=== PATIENT | female | born 1985 | race Caucasian/White ===

== ENCOUNTER 2020-07-26 10:11 | Outpatient (CLI) | payer MEDICAID, SELFPAY ==
--- NOTE | 2020-07-26 10:31 | XR_ITS ---
WS: [id number] LEFT ANKLE: 3 VIEW(S) TECHNIQUE: AP, oblique(s) and lateral. HISTORY: LEFT ANKLE PAIN COMPARISON: None available. Normal anatomic alignment with no fracture or dislocation. There is very mild widening of the distal tibiofibular articulation which may indicate an intraosseou s membrane injury. There is additional soft tissue swelling laterally. Well-corticated osseous density at the medial malleolus is probably from prior trauma. Ankle mortise is otherwise intact. Small calcaneal spur and Achilles enthesopathy. XR/XR ankle LT min 3V* [id number] IMPRESSION: 1. No acute fracture. 2. Very mild widening of the distal tibiofibular articulation. 3. Small amount of soft tissue edema laterally.
== END 2020-07-26 10:12 | disposition home or self-care (01) ==
LOC: RADWPI 10:20
PROVIDERS: PCP Nurse Practitioner Family; Visit Provider Nurse Practitioner Family
DX: M25.572 Pain in left ankle and joints of left foot (principal); R60.0 Localized edema
CPT/HCPCS: 73610

== ENCOUNTER → 2020-12-25 12:54 | Outpatient (BNVA) | payer BC, SELFPAY | PROVIDERS: PCP Nurse Practitioner Family; Visit Provider Podiatrist Foot & Ankle Surgery | DX: M25.571 Pain in right ankle and joints of right foot (principal) | CPT/HCPCS: 73610 ==

== ENCOUNTER 2020-12-25 14:05 | Outpatient (CLI) | payer BC, SELFPAY | END 2020-12-25 14:06 | disposition home or self-care (01) | LOC: SPT 14:07 | PROVIDERS: PCP Nurse Practitioner Family; Visit Provider Podiatrist Foot & Ankle Surgery | DX: Z46.89 Encounter for fitting and adjustment of other specified devices (principal); S99.919D Unspecified injury of unspecified ankle, subsequent encounter; X58.XXXD Exposure to other specified factors, subsequent encounter; M76.821 Posterior tibial tendinitis, right leg; M19.171 Post-traumatic osteoarthritis, right ankle and foot | CPT/HCPCS: 97760; L1902 ==

== ENCOUNTER 2021-02-05 11:06 | Outpatient (CLI) | payer BC, MEDICAID, SELFPAY ==
[2021-02-05 12:31] LABS: Estmated Average Glucose 143; Hemoglobin A1C 6.6 % (4.0-6.0)
== END 2021-02-05 11:07 | disposition home or self-care (01) ==
LOC: LAB 11:13
PROVIDERS: PCP Nurse Practitioner Family; Visit Provider Podiatrist Foot & Ankle Surgery
DX: R73.03 Prediabetes (principal)
CPT/HCPCS: 36415; 83036

== ENCOUNTER → 2022-04-15 12:33 | Outpatient (BNVA) | payer BC, MEDICAID, SELFPAY | PROVIDERS: PCP Nurse Practitioner Family; Referring Provider Pediatrics; Visit Provider Surgery | DX: Z68.43 Body mass index [BMI] 50.0-59.9, adult (principal); E66.01 Morbid (severe) obesity due to excess calories; E11.9 Type 2 diabetes mellitus without complications | CPT/HCPCS: 99203 ==

== ENCOUNTER → 2022-05-27 07:55 | Outpatient (BNVA) | payer BC, MEDICAID, SELFPAY | PROVIDERS: PCP Family Medicine; Referring Provider Family Medicine; Visit Provider Internal Medicine | DX: E11.9 Type 2 diabetes mellitus without complications (principal); L68.0 Hirsutism; E28.2 Polycystic ovarian syndrome; N92.6 Irregular menstruation, unspecified; R63.5 Abnormal weight gain; Z68.42 Body mass index [BMI] 45.0-49.9, adult; F17.220 Nicotine dependence, chewing tobacco, uncomplicated | CPT/HCPCS: 99204 ==

== ENCOUNTER 2022-05-29 13:57 | Outpatient (CLI) | payer BC, MEDICAID, SELFPAY ==
[2022-05-29 14:58] LABS: Follicle Stimulating Hormone 7.5 mIU/mL; Luteinizing Hormone 10.3 mIU/mL (0.5-41.7); Prolactin 12.68 ng/mL (4.8-23.3); Thyroid Stimulating Hormone 1.21 uIU/mL (0.27-4.20)
[2022-05-29 16:35] LABS: Free T4 Free Thyroxine 1.25 ng/dL (0.82-1.77); Testosterone Total 29.9 ng/dL (8.4-48.1)
[2022-05-30 07:52] LABS: Dehydroepiandrosterone Sulfate 154 mcg/dL (19-237)
[2022-06-01 12:12] LABS: Thyroid Peroxidase Antobodies 1 IU/mL (<9)
== END 2022-05-29 13:58 | disposition home or self-care (01) ==
LOC: LAB 14:01
PROVIDERS: PCP Family Medicine; Visit Provider Internal Medicine
DX: E11.9 Type 2 diabetes mellitus without complications (principal); E28.2 Polycystic ovarian syndrome; L68.0 Hirsutism; N92.6 Irregular menstruation, unspecified; R63.5 Abnormal weight gain
CPT/HCPCS: 82627; 83001; 83002; 83498; 84146; 84403; 84439; 84443; 86376

== ENCOUNTER 2022-08-12 08:57 | Outpatient (CLI) | payer BC, MEDICAID, SELFPAY ==
--- NOTE | 2022-08-12 09:07 | US_ITS ---
WS: [id number] TRANSVAGINAL PELVIC ULTRASOUND HISTORY: Ovarian cysts COMPARISON: None available. Uterus: 7.8 cm x 4.1 cm x 3.7 cm. Normal size anteverted uterus. No fibroid or mass. Numerous cystic structures throughout the cervix consistent with nabothian cysts. Endometrium: 1.1 cm. Normal endometrium. Junctional zone intact. Neither ovary is identified. No adnexal mass is identified. There is a large amount shadowing from th e GI tract obscuring the adnexa. There is no free fluid. US/US transvaginal [id number] IMPRESSION: 1. Normal endometrium. 2. Neither ovary identified. No adnexal masses. 3. Numerous nabothian cysts.
== END 2022-08-12 08:58 | disposition home or self-care (01) ==
PROVIDERS: PCP Family Medicine; Visit Provider Internal Medicine
DX: E28.2 Polycystic ovarian syndrome (principal)
CPT/HCPCS: 76830

== ENCOUNTER → 2023-06-08 08:42 | Outpatient (BNVA) | payer BC, MEDICAID, SELFPAY | PROVIDERS: PCP Family Medicine; Visit Provider Obstetrics & Gynecology | DX: N92.0 Excessive and frequent menstruation with regular cycle (principal) | CPT/HCPCS: 76830 ==

== ENCOUNTER → 2023-07-21 09:04 | Outpatient (BNVA) | payer BC, MEDICAID, SELFPAY | PROVIDERS: PCP Family Medicine; Visit Provider Obstetrics & Gynecology | DX: R35.0 Frequency of micturition (principal) | CPT/HCPCS: 84315; 87077; 87086; 87184 ==

== ENCOUNTER → 2023-07-23 10:00 | Outpatient (BNVA) | payer BC, MEDICAID, SELFPAY | PROVIDERS: PCP Family Medicine; Visit Provider Obstetrics & Gynecology | DX: Z12.4 Encounter for screening for malignant neoplasm of cervix (principal) | CPT/HCPCS: 87624 ==

== ENCOUNTER 2023-07-29 08:06 | Day surgery (SDC) | payer BC, MEDICAID, SELFPAY ==
[2023-07-28 09:09] VITALS: BMI 46.0
--- NOTE | 2023-07-28 22:18 | W.PM.OPSFHP ---
Same Day Surgery H&P Indication for Procedure/HPI DATE OF PROCEDURE: July 29, 2023 CHIEF COMPLAINT/INDICATIONFOR SURGICAL PROCEDURE: irregular, heavy, prolonged bleeding PREOP DIAGNOSIS: abnormal uterine bleeding PLANNED PROCEDURE: Operation Date: 07/29/23 10:15 Proposed Procedures p Hysteroscopy, endometrial sampling, possible endometrial polypectomy with Myosure 58276, Intrauterine device placement 83323,N92.0,Z30.9(Not Applicable) - Ralf Marshall MD s Poylpectomy(Not Applicable) - Ralf Marshall MD s Placement of Intrauterine Device(Not Applicable) - Ralf Marshall MD 38 y.o. A4 now scheduled for hysteroscopy, endometrial sampling, possible endometrial polypectomy; mirena IUD placement for h/o irregular, heavy, prolonged bleeding Medications/Allergies* Home Medications Medication Instructions Recorded Confirmed Type acetaminophen 325 mg tablet 325 mg PO QID PRN Pain 04/15/22 07/28/23 History (Tylenol) cetirizine 10 mg tablet (Zyrtec) 10 mg PO DAILY PRN allergies 04/15/22 07/28/23 History sitagliptin phosphate 25 mg tablet 25 mg PO ONCE 04/15/22 07/28/23 History (Januvia) Allergies/Adverse Reactions Allergy/AdvReac Type Severity Reaction Status Date / Time erythromycin base Allergy Severe swelling Verified 07/28/23 09:07 torodol Allergy Intermediate nausea Uncoded 07/28/23 09:07 Pertinent History/Comorbid Conditions* Medical History (Updated 07/25/23 @ 19:52 by Ralf Marshall MD) Cyst near coccyx Hx of pilonidal cyst removed 2014 Surgical History (Updated 12/25/20 @ 13:48 by Bang Pompa DPM) History of cholecystectomy History of dilatation and curettage History of tonsillectomy and adenoidectomy Family History (Updated 02/22/23 @ 12:05 by Rosangela Lamb LPN) Family history of heart attack Mother Father Denies family history of Colon cancer Ovarian cancer Diabetes Hypercholesteremia Breast cancer Hypertension Uterine cancer Thyroid disease Stroke Pertinent Exam Findings alert, oriented x 3, clear to auscultation bilaterally and regular rate & rhythm Pertinent Data Pelvic sono 06-08-23 normal ovaries Endometrium 8 mm Recommendations Surgery/Procedure today Other Plans: surgery / procedure July 29, 2023 Coding Level of Care Code Acute Code for Chg Fwd Diagnoses Time Spent (min) 20
[2023-07-29] VITALS (9 sets, daily range): BP systolic 105–142; BP diastolic 84–108; PULSE 63–94; RESP 11–20; TEMP 36.2–36.7; O2SAT 92–99; BMI 46.0
[2023-07-29 09:18] LABS: Glucose Point of Care 213 mg/dL (70-110)
[2023-07-29] MEDS: sodium chloride 0.9% 1,000 ML 30 ML IV (09:29)
[2023-07-29 09:40] LABS: OR HCG Qualitative Urine Negative (Negative)
--- NOTE | 2023-07-29 10:07 | W.PM.OPSUD ---
Surgery/Procedure H&P Update DATE OF PROCEDURE: July 29, 2023 DATE H&P PERFORMED: 07/28/23 H&P UPDATE INFORMATION: I have reviewed H&P completed within last 30 days, I have examined patient prior to procedure and No changes to prior documentation PREOP DIAGNOSIS: abnormal uterine bleeding PRIMARY INDICATION FOR PROCEDURE: abnormal uterine bleeding PLANNED PROCEDURE: Operation Date: 07/29/23 10:15 Proposed Procedures p Hysteroscopy, endometrial sampling, possible endometrial polypectomy with Myosure 03839, Intrauterine device placement 72015,N92.0,Z30.9(Not Applicable) - Ralf Marshall MD s Poylpectomy(Not Applicable) - Ralf Marshall MD s Placement of Intrauterine Device(Not Applicable) - Ralf Marshall MD
--- NOTE | 2023-07-29 10:40 | ANES.PREANE2 ---
Pre-Anesthetic Assessment Height/Weight: Height 1.68 m Weight 129.274 kg Temp Pulse Resp BP Pulse Ox O2 Del Method 97.2 F L 84 16 137/94 96 Room Air 07/29/23 08:56 07/29/23 08:56 07/29/23 08:56 07/29/23 08:56 07/29/23 08:56 07/29/23 08:58 Preop Diagnosis: abnormal uterine bleeding Operation Date: 07/29/23 10:15 Proposed Procedures p Hysteroscopy, endometrial sampling, possible endometrial polypectomy with Myosure 76961, Intrauterine device placement 53956,N92.0,Z30.9(Not Applicable) - Ralf Marshall MD s Poylpectomy(Not Applicable) - Ralf Marshall MD s Placement of Intrauterine Device(Not Applicable) - Ralf Marshall MD Familial anesthetic complications: none Was Beta Rae taken within 24 hours: N/A Was Clonidine taken within 24 hours: N/A Last intake: Intake Last Liquid Date 07/28/23 Last Liquid Time 21:00 Last Solid Date 07/28/23 Last Solid Time 17:30 Social Tobacco (chews) and No alcohol Exam alert, oriented x 3, clear to auscultation bilaterally and regular rate & rhythm Airway Submandibular: within normal limits Cervical ROM: within normal limits Mallampati: Class II Dentition: chipped Metabolic Diabetes Mellitus and Morbid Obesity PCOS Anesthetic Plan ASA status: 3 Anesthesia: General Medications/Allergies Home Medications Medication Instructions Recorded Confirmed Last Taken Type right ankle supinator #1 ea 12/25/20 07/23/23 Unknown Rx Sole Supports #1 ea 02/05/21 07/23/23 Unknown Rx SMO #1 ea 05/30/21 07/23/23 Unknown Rx acetaminophen 325 mg tablet 325 mg PO QID PRN Pain 04/15/22 07/28/23 07/28/23 History (Tylenol) cetirizine 10 mg tablet (Zyrtec) 10 mg PO DAILY PRN allergies 04/15/22 07/28/23 07/28/23 History sitagliptin phosphate 25 mg tablet 25 mg PO ONCE 04/15/22 07/28/23 Unknown History (Januvia) fluticasone propionate 50 2 spray intranasal DAILY #16 grams 09/23/22 07/28/23 07/28/23 Rx mcg/actuation nasal spray,suspension (Flonase Allergy Relief) sulfamethoxazole 800 1 tab PO BID #14 tabs 07/21/23 07/28/23 07/28/23 Rx mg-trimethoprim 160 mg tablet (Bactrim DS) Allergies Allergy/AdvReac Type Severity Reaction Status Date / Time erythromycin base Allergy Severe swelling Verified 07/28/23 09:07 tramadol Allergy ADR-Nausea Verified 07/29/23 08:42 torodol Allergy Intermediate nausea Uncoded 07/28/23 09:07 Current Medications Generic Name Dose Route Start Last Admin Trade Name Freq PRN Reason Stop Dose Admin Sodium Chloride 1,000 mls @ 30 mls/hr 07/29/23 08:45 07/29/23 09:29 Sodium Chloride 0.9% IV 07/30/23 08:44 30 mls/hr .Q24H LOLITA Administration PFSH Anesthesia Medical History Cyst near coccyx Hx of pilonidal cyst removed 2014 Surgical History History of cholecystectomy History of dilatation and curettage History of tonsillectomy and adenoidectomy Family History Mother Family history of heart attack Father Family history of heart attack Denies family history of Colon cancer Ovarian cancer Diabetes Hypercholesteremia Breast cancer Hypertension Uterine cancer Thyroid disease Stroke Female Reproductive History Date of last menstrual period: 05/03/23 Data Anesthesia Cardiac Studies: No Data to Display
--- NOTE | 2023-07-29 11:18 | PC.NURSE ---
1110 - pt awake and demanding to go back to her pre op room due to her need to have a bowel movement - instructed multiple times per this nurse of need to stay in bed due to anesthesia and need to monitor vital signs - offered bed pappas with assistance multiple times - pt refuses
--- NOTE | 2023-07-29 11:36 | NUR.SHIFT ---
1125 - questioned pt regarding pain - pt yelling obscenties to this nurse regarding her need to have a bowel movement and to return to her room - vital signs stable at present time - report given to pre op nurse FLOR Reynolds
--- NOTE | 2023-07-29 11:37 | PC.NURSE ---
1127 - arrived in pre-op room #10 with this nurse as well as FLOR Reynolds - assisted pt with removal of BP cuff and IVF to assist to bathroom, instructed pt to move slowly as she sat on side of bed - this nurse attempted to assist pt with placing underwear on - pt grabbed underwear from this nurse hands and screams get your Fing hands off me - again instructed pt to move with caution due to anesthesia - pt stands and looks at this nurse stating I'm fine - do not touch me - FLOR Reynolds at side to witness above as well as assist pt to restroom
--- NOTE | 2023-07-29 12:15 | PM.OP ---
Operative Report Date of procedure: July 29, 2023 Pre-op diagnosis: abnormal uterine bleeding Post-op diagnosis: same Post-op findings: normal endometrial cavity No polyps / fibroids Minimal endometrial tissue Procedure done: hysteroscopy Curettage of uterus Placement of mirena intrauterine device Implants: mirena intrauterine device Specimens removed/disposition: endometrial curettings Surgeon: Ralf Marshall MD Anesthesia: MAC Estimated blood loss (mL): 0 Complications: none Condition: stable Disposition: PACU Brief History: 38 y.o. A4 scheduled for hysteroscopy, endometrial sampling, possible endometrial polypectomy; mirena intrauterine device placement for h/o irregular, heavy, prolonged bleeding Procedure: Informed consent signed. Patient was taken to the operating room. Anesthesia was induced. Patient was placed in dorsolithotomy position, prepped and draped for hysteroscopy. A bivalve speculum was placed in the vagina. The anterior lip of the cervix was grasped with a sharp-toothed tenaculum. The cervix was serially dilated with Hegar dilators. A hysteroscope was placed into the endometrial cavity. The endometrial cavity was seen to be normal. There were no polyps or fibroids. There was minimal endometrial tissue. The hysteroscope was then removed. Endometrial curettage was done with a sharp curette. Endometrial tissue was sent to pathology. The mirena IUD was then prepared, placed into the endometrial cavity and deployed. A 3-4 cm string was left at the cervical os. The sharp-toothed tenaculum was removed. There was no bleeding from the endometrial cavity or cervix. The patient was then placed supine and awakened and taken to the PACU. Postop condition: stable EBL: none Sponge and instruments counts were normal x 2 Complications: none
--- NOTE | 2023-07-29 12:51 | ANE.PACU2 ---
Inpatient post-anesthesia follow up: Airway intact: Yes Vital signs: Temperature 97.8 F Pulse Rate 63 Respiratory Rate 17 Blood Pressure 142/86 Pulse Oximetry 99 Oxygen Delivery Me thod Room Air Oxygen Flow Rate 2 Fraction of Inspir ed Oxygen Hydration adequate: Yes Nausea and vomiting: No Pain level: 2 Mental status: Baseline
--- NOTE | 2023-07-29 20:18 | PM.OP ---
Operative Report Date of procedure: July 29, 2023 Pre-op diagnosis: abnormal uterine bleeding Post-op diagnosis: same Post-op findings: normal endometrial cavity No polyps / fibroids Minimal endometrial tissue Procedure done: hysteroscopy Curettage of uterus Placement of mirena intrauterine device Implants: mirena intrauterine device Specimens removed/disposition: endometrial curettings Surgeon: Ralf Marshall MD Anesthesia: MAC Estimated blood loss (mL): 0 Complications: none Condition: stable Disposition: PACU Brief History: 38 y.o. A4 scheduled for hysteroscopy, endometrial sampling, possible endometrial polypectomy; mirena intrauterine device placement for h/o irregular, heavy, prolonged bleeding
== END 2023-07-29 13:50 | disposition home or self-care (01) ==
PROVIDERS: PCP Family Medicine; Visit Provider Obstetrics & Gynecology
PROC: 0UDB8ZZ Extraction of Endometrium, Via Natural or Artificial Opening Endoscopic (ICD-10-PCS; CPT 58558; principal; 2023-07-29 10:15)
PROC: (CPT 58300; 2023-07-29 10:15)
DX: N93.9 Abnormal uterine and vaginal bleeding, unspecified (principal); E11.9 Type 2 diabetes mellitus without complications; E66.01 Morbid (severe) obesity due to excess calories; Z68.42 Body mass index [BMI] 45.0-49.9, adult; E28.2 Polycystic ovarian syndrome
CPT/HCPCS: 58300; 58558; 36416; 82962; 84703; 88305; J1100; J2250; J2405; J2704; J3010; J7030

== ENCOUNTER → 2023-08-19 13:13 | Outpatient (BNVA) | payer BC, MEDICAID, SELFPAY | PROVIDERS: PCP Family Medicine; Visit Provider Internal Medicine | DX: R10.9 Unspecified abdominal pain (principal); E11.9 Type 2 diabetes mellitus without complications; E28.2 Polycystic ovarian syndrome; L68.0 Hirsutism; N64.3 Galactorrhea not associated with childbirth; N92.6 Irregular menstruation, unspecified; R63.5 Abnormal weight gain; N88.8 Other specified noninflammatory disorders of cervix uteri; N92.0 Excessive and frequent menstruation with regular cycle; M54.9 Dorsalgia, unspecified | CPT/HCPCS: 36415; 80053; 80061; 81001; 82044; 83036; 83721; 87086 ==

== ENCOUNTER → 2024-06-15 09:41 | Outpatient (BNVA) | payer BC, MEDICAID, SELFPAY | PROVIDERS: PCP Family Medicine; Visit Provider Podiatrist Foot & Ankle Surgery | DX: M19.171 Post-traumatic osteoarthritis, right ankle and foot; M76.821 Posterior tibial tendinitis, right leg; E11.9 Type 2 diabetes mellitus without complications | CPT/HCPCS: 73610 ==

== ENCOUNTER 2024-06-26 09:43 | Outpatient (CLI) | payer BC, MEDICAID, SELFPAY ==
--- NOTE | 2024-06-26 09:49 | FL_ITS ---
WS: [id number] FL barium swallow modifd [id number] REASON FOR EXAM: Other dysphagia FLUOROSCOPY TIME: 1min [id number] # OF SPOT FILMS: 0 FINDINGS: Examination was performed under the supervision of the speech therapy department. With the patient in the sitting upright position, lateral projection, the swallowing of multiple cons istencies of barium was fluoroscopically monitored and video recorded. A detailed report of the swallowing will be rendered by the speech therapy department. FL/FL barium swallow modifd [id number] IMPRESSION: Modified barium swallow as above.
== END 2024-06-26 09:44 | disposition home or self-care (01) ==
LOC: RAD 09:43
PROVIDERS: PCP Family Medicine; Visit Provider Family Medicine
DX: R13.19 Other dysphagia (principal)
CPT/HCPCS: 74230; 92611

== ENCOUNTER → 2024-08-01 15:06 | Outpatient (BNVA) | payer BC, MEDICAID, SELFPAY | PROVIDERS: PCP Family Medicine; Visit Provider Family Medicine | DX: R05.9 Cough, unspecified (principal) | CPT/HCPCS: 87400; 87426 ==

== ENCOUNTER → 2024-08-15 11:59 | Outpatient (BNVA) | payer BC, MEDICAID, SELFPAY | PROVIDERS: Referring Provider Family Medicine; Visit Provider Internal Medicine Cardiovascular Disease | DX: I49.8 Other specified cardiac arrhythmias (principal); R07.9 Chest pain, unspecified | CPT/HCPCS: 93005 ==

== ENCOUNTER 2024-09-20 12:46 | Outpatient (CLI) | payer BC, MEDICAID, SELFPAY ==
[2024-09-20 12:51] VITALS: BMI 42.9
--- NOTE | 2024-09-20 12:54 | ECG_ITS ---
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 Interpretive Statements Lung unchanged pre/post procedure; Intraprocedure shortess of breath; Symptoms resoled by discharge PROCEDURE: At the baseline, the patient's blood pressure was 120/83 with a heart rate of 109. The baseline electrocardiogram showed sinus tachycardia with a rate of 123 bpm. Some nonspecific T wave changes. The patient exercised for 7 minutes and 15 seconds on a standard Kei protocol. Patient attained a maximum heart rate of 156 beats per minute(86% of the maximum predicted heart rate) with a blood pressure at the peak exercise of 162/55 mm Hg. The EKG at the peak exercise revealed some nonspecific ST-T changes. Patient did not have any chest pain or any significant cardiac arrhythmias with the exercise During the recovery phase, there were no new changes. Blood pressure at the end of the recovery phase was 136/89 mm Hg with a heart rate of 105 per minute. CONCLUSION: 1. Nonspecific EKG changes with the treadmill exercise 2. No exercise-induced chest pain or cardiac arrhythmia 3. Fair exercise tolerance, attained a maximum of 9.4 METs Electronically Signed On 09-20-2024 20:19:36 [employer] by Valarie Choi M.D. [email or web address]
[2024-09-20 13:37] VITALS: BP 143/84; PULSE 98
== END 2024-09-20 12:47 | disposition home or self-care (01) ==
LOC: CDL 12:48
PROVIDERS: Visit Provider Internal Medicine Cardiovascular Disease
DX: R07.9 Chest pain, unspecified (principal); R06.09 Other forms of dyspnea; R06.02 Shortness of breath
CPT/HCPCS: 93017

== ENCOUNTER 2024-09-29 12:41 | Outpatient (CLI) | payer BC, MEDICAID, SELFPAY ==
--- NOTE | 2024-09-29 12:45 | USCV_ITS ---
Harshad Brown Age: 39 Gender: F : 1985 Exam Date: 09/29/2024 13:01 Ordering Phys: Valarie Choi MD ([email or web address]) Technologist: Sawyer Jasso Exam Location: [facility] [place] Indication: chest pain and sob BP: 114 / 76 HR: 77 Rhythm: Sinus Technical Quality: MEASUREMENTS (Male / Female) Normal Values 2D ECHO LV Diastolic Diameter PLAX 4.0 cm 4.2 - 5.9 / 3.9 - 5.3 cm IVS Diastolic Thickness 1.4 cm 0.6 - 1.0 / 0.6 - 0.9 cm IVS Systolic Thickness 1.5 cm LVPW Diastolic Thickness 1.7 cm 0.6 - 1.0 / 0.6 - 0.9 cm LVPW Systolic Thickness 2.4 cm LVOT Diameter 2.3 cm LV Ejection Fraction 2D Teich 71.9 % LV Ejection Fraction MOD 4C 55.8 % LV Ejection Fraction MOD 2C 70.6 % LV Ejection Fraction 2C AL 72.2 % LA Diameter 3.5 cm RA Systolic Volume 4C AL 35.7 ml RA Systolic Volume 4C MOD 34.3 ml LA Sys Volume AL 39.7 cm cubed LA Sys Volume Index AL 16.3 cm cubed/m squared Aorta at Sinotubular Diameter 2.2 cm IVC Diameter 1.8 cm M-MODE LA Ao Ratio MM 1.6 AV Cusp Separation MM 1.8 cm DOPPLER AV Peak Velocity 123.0 cm/s LVOT Peak Velocity 94.0 cm/s AV Area Cont Eq vti 2.7 cm squared AV Area Cont Eq pk 3.2 cm squared MV Peak Velocity 62.0 cm/s MV Area PHT 3.9 cm squared Mitral E to A Ratio 1.1 TV Peak Velocity 206.0 cm/s TR Peak Velocity 214.0 cm/s TR Peak Gradient 18.3 mmHg TR Mean Velocity 178.0 cm/s TR Mean Gradient 13.5 mmHg TR Velocity Time Integral 52.2 cm PV Peak Velocity 110.0 cm/s RV Ejection Time 0.3 s FINDINGS Left Ventricle Normal left ventricular size and systolic function, EF 70%.. No regional wall motion abnormalities. Right Ventricle The right ventricle is normal in size and function. Right Atrium The right atrium is normal in size. Left Atrium The left atrium is normal in size. Mitral Valve No gross abnormalities noted Aortic Valve No gross abnormalities noted Tricuspid Valve No gross abnormalities noted Pulmonic Valve No gross abnormalities noted Pericardium No pericardial effusion. Aorta Normal ascending aorta dimension. IVC The inferior vena cava appears normal. CONCLUSIONS Normal left ventricular size and systolic function, EF 70%.. No regional wall motion abnormalities. Normal cardiac chamber sizes. No significant stenotic or regurgitant lesions. No intracardiac masses. No similar previous studies are available for comparison Dr Valarie Choi MD FACC (Electronically Signed) Final Date: 06 October 2024 19:04 S
== END 2024-09-29 12:42 | disposition home or self-care (01) ==
PROVIDERS: Visit Provider Internal Medicine Cardiovascular Disease
DX: R06.09 Other forms of dyspnea (principal)
CPT/HCPCS: 93306

== ENCOUNTER → 2025-03-22 10:02 | Outpatient (BNVA) | payer BC, MEDICAID, SELFPAY | PROVIDERS: Visit Provider Obstetrics & Gynecology | DX: N91.2 Amenorrhea, unspecified (principal) | CPT/HCPCS: 81025 ==

== ENCOUNTER → 2025-04-26 12:21 | Outpatient (BNVA) | payer BC, MEDICAID, SELFPAY | PROVIDERS: Visit Provider Family Medicine | DX: E11.9 Type 2 diabetes mellitus without complications (principal); Z79.4 Long term (current) use of insulin; E66.01 Morbid (severe) obesity due to excess calories; E78.5 Hyperlipidemia, unspecified; F17.210 Nicotine dependence, cigarettes, uncomplicated; E11.65 Type 2 diabetes mellitus with hyperglycemia | CPT/HCPCS: 80053; 80061; 82043; 83036; 83721; 84439; 84443; 85025 ==

== ENCOUNTER → 2025-05-29 17:37 | Outpatient (BNVA) | payer BC, SELFPAY | PROVIDERS: Visit Provider Nurse Practitioner | DX: J02.9 Acute pharyngitis, unspecified (principal) | CPT/HCPCS: 87071; 87400; 87880 ==

== ENCOUNTER 2025-07-06 10:01 | Outpatient (CLI) | payer BC, MEDICAID, SELFPAY ==
--- NOTE | 2025-07-06 10:09 | XR_ITS ---
WS: [id number] XR lumbar spine 2-3V* [id number] REASON FOR EXAM: chronic low back pain FINDINGS: Relatively normal lumbar spine curvatures. No significant compression deformity or focal lesion of the lumbar vertebrae. Moderate narrowing of the L4-L5 disc space with moderate endplate sclerosis and mild osteophytosis. Mild endplate sclerosis and osteophytosis in the remainder of the lumbar spine. No spondylolysis. No significant spondylolisthesis. XR/XR lumbar spine 2-3V* [id number] IMPRESSION: Lumbar degenerative spondylosis as above.
== END 2025-07-06 10:02 | disposition home or self-care (01) ==
LOC: RAD 10:04
PROVIDERS: PCP Family Medicine; Visit Provider Family Medicine
DX: M47.896 Other spondylosis, lumbar region (principal)
CPT/HCPCS: 72100

== ENCOUNTER → 2025-07-30 10:20 | Outpatient (BNVA) | payer BC, SELFPAY | PROVIDERS: PCP Family Medicine; Visit Provider Family Medicine | DX: E11.65 Type 2 diabetes mellitus with hyperglycemia (principal); Z11.59 Encounter for screening for other viral diseases | CPT/HCPCS: 82043; 83036; 86803 ==

== ENCOUNTER 2025-08-02 11:58 | Outpatient (CLI) | payer BC, MEDICAID, SELFPAY ==
--- NOTE | 2025-08-02 13:00 | MR_ITS ---
WS: [id number] MRI LUMBAR SPINE NONCONTRAST TECHNIQUE: Sagittal T1, T2 and STIR imaging. Axial T1 and T2 imaging. CLINICAL INFORMATION: chronic low back pain; failed PT COMPARISON: None. FINDINGS: Mild lumbar curve. No acute compression. Disc desiccation L4-5 with complete loss of disc height and endplate degenerative changes. L1-L2: Normal. L2-L3: Mild annular bulging. Mild facet arthropathy. Spinal canal and foramen are patent. L3-L4: Mild disc bulge with a small annular tear. Moderate central canal stenosis. Impingement on the traversing RIGHT greater than LEFT L4 nerve roots. Moderate facet arthropathy. Mild RIGHT greater than LEFT foraminal narrowing. L4-L5: Chronic appearing calcified osteophyte protrusion with impingement LEFT subarticular recess and severe central canal stenosis. Moderate facet arthropathy. Mild RIGHT greater than LEFT foraminal narrowing. There may be prior postoperative changes at this level. L5-S1: Mild annular bulging. Slight contact of the LEFT S1 nerve root. Moderate facet arthropathy. Spinal canal and foramen are patent. Visualized pelvic bony structures: Normal. Paravertebral soft tissues: Normal. Clustered cystic lesions in the cervix partially evaluated measuring 3.4 x 2.1 cm most likely representing a cluster of nabothian cysts but technically indeterminate on this study. Recommend further evaluation with pelvic ultrasound. MR/MR lumbar spine wo con* [id number] IMPRESSION: 1. Mild lumbar curve. No acute compression. 2. Disc degeneration worse at L4-5 with endplate degenerative changes. Severe central canal stenosis due to chronic appearing calcified disc osteophyte protr usion. Impingement of the LEFT greater than RIGHT subarticular recess. Recommen d spine surgery consultation. Suggestion of prior remote laminectomy defects at this level. Recommend correlation with surgical history. 3. Moderate central canal stenosis L3-4 due to disc bulging with a small annul ar fissure in combination with facet arthropathy and ligamentum flavum hypertro phy. Significant impingement on the RIGHT greater than LEFT subarticular recess . 4. Shallow central disc protrusions in the cervical spine on electrotyper imaging wit h mild central canal stenosis at C4-C6. 5. Clustered cystic lesions in the cervix partially evaluated measuring 3.4 x 2.1 cm most likely representing a cluster of nabothian cysts but technically in determinate on this study. Recommend further evaluation with pelvic ultrasound.
== END 2025-08-02 11:59 | disposition home or self-care (01) ==
LOC: RAD 11:59
PROVIDERS: PCP Family Medicine; Visit Provider Family Medicine
DX: M51.360 Other intervertebral disc degeneration, lumbar region with discogenic back pain only (principal); M48.061 Spinal stenosis, lumbar region without neurogenic claudication; M48.02 Spinal stenosis, cervical region; N88.8 Other specified noninflammatory disorders of cervix uteri
CPT/HCPCS: 72148

== ENCOUNTER 2025-08-14 09:01 | Outpatient (CLI) | payer BC, MEDICAID, SELFPAY ==
--- NOTE | 2025-08-14 08:40 | MM_ITS ---
WS: [id number] BILATERAL SCREENING DIGITAL TOMOSYNTHESIS MAMMOGRAM WITH CAD HISTORY: screening COMPARISON: None available. Bilateral CC and MLO views with tomosynthesis and synthetic mammography submitted. Computer aided detection analyzed. Breast composition: The breasts are almost entirely fatty. No suspicious masses, microcalcifications or architectural distortion. Benign calcifications in the anterior RIGHT breast. MM/MM scr BI tomosynthesis [id number] IMPRESSION: BI-RADS: 2 - Benign. FOLLOW UP: 1 Year Follow-up
== END 2025-08-14 09:02 | disposition home or self-care (01) ==
LOC: RAD 09:02
PROVIDERS: PCP Family Medicine; Visit Provider Family Medicine
DX: Z12.31 Encounter for screening mammogram for malignant neoplasm of breast (principal); R92.313 Mammographic fatty tissue density, bilateral breasts; R92.1 Mammographic calcification found on diagnostic imaging of breast
CPT/HCPCS: 77063; 77067